=== PATIENT | female | born 1980 | race Caucasian/White ===

== ENCOUNTER → 2018-01-09 | Outpatient (CLI) | payer OTHER | END | disposition home or self-care (01) | LOC: US 07:27 | DX: N83.202 Unspecified ovarian cyst, left side (principal); N83.201 Unspecified ovarian cyst, right side; Z90.710 Acquired absence of both cervix and uterus | CPT/HCPCS: 76770; 76830; 76856 ==

== ENCOUNTER → 2018-02-01 | Outpatient (CLI) | payer OTHER | END | disposition home or self-care (01) | LOC: RAD 12:09 | DX: M41.85 Other forms of scoliosis, thoracolumbar region (principal); M47.896 Other spondylosis, lumbar region; M46.04 Spinal enthesopathy, thoracic region; M62.838 Other muscle spasm | CPT/HCPCS: 72072; 72100 ==